=== PATIENT | male | born 1950 | race Caucasian/White ===

== ENCOUNTER → 2018-08-06 | Outpatient (CLI) | payer MEDICARE ==
[~2018-08-06] MED LIST: ALBU8.5H8 INH; DUTA0.5C; LISI-167; LISI-167 PO; METO25TA35 PO; TAMS-11; TEST100V2 INJ
[2018-08-06 13:53] LABS: ALANINE AMINOTRANSFERASE 41 U/L (12-78); ALBUMIN 3.9 g/dL (3.4-5.0); ANION GAP 7 mmol/L (5-15); CALCIUM 8.9 mg/dL (8.5-10.1); CHLORIDE 108 mmol/L (98-107)
[2018-08-06 13:56] LABS: ALKALINE PHOSPHATASE 70 U/L (45-117); BILIRUBIN,TOTAL 0.6 mg/dL (0.2-1.0); TOTAL PROTEIN 6.8 g/dL (6.4-8.2)
== END | disposition home or self-care (01) ==
LOC: STAR 12:34
PROVIDERS: ATTEND Otolaryngology
DX: Z01.818 Encounter for other preprocedural examination (principal); J32.0 Chronic maxillary sinusitis; J32.2 Chronic ethmoidal sinusitis; J33.8 Other polyp of sinus
CPT/HCPCS: 36415; 80053; 93005

== ENCOUNTER 2018-08-19 06:06 | Day surgery (SDC) | payer MEDICARE ==
[~2018-08-19] VITALS: Ht 182.9 cm; Wt 79.8 kg
[2018-08-19] MEDS ORDERED: LACTATED RINGERS 1,000 ML IV SCH (06:24)
[2018-08-19 06:28] VITALS: BP 141/86
[2018-08-19] MEDS ORDERED: BACITRACIN OINT 500U/GM, 15 GM ONE (06:43)
[2018-08-19] MEDS ORDERED: FLUORESCEIN SODIUM 500 MG/5 ML ONE (06:43)
[2018-08-19] MEDS ORDERED: EPINEPHRINE TOPICAL SOLN 1 MG/ML, 30ML ONE (06:43)
[2018-08-19] MEDS ORDERED: LIDOCAINE 1%-EPI 1:100K, 20ML ONE (06:44)
[2018-08-19] MEDS ORDERED: OXYMETAZOLINE NASAL SPRAY 0.05%, 15ML ONE (06:44)
[2018-08-19] MEDS ORDERED: hydrALAzine 20 MG/ML, 1ML IV PRN (07:00)
[2018-08-19] MEDS ORDERED: GABAPENTIN 300 MG CAPSULE PO ONE (07:00)
[2018-08-19] MEDS ORDERED: LABETALOL 5MG/ML, 20ML IV PRN (07:00)
[2018-08-19] MEDS ORDERED: ACETAMINOPHEN 325 MG TABLET PO PRN (07:00)
[2018-08-19] MEDS ORDERED: HYDROmorphone 2 MG/ML, 1ML IVPush PRN (07:00)
[2018-08-19] MEDS ORDERED: ONDANSETRON ODT 8 MG PO PRN (07:00)
[2018-08-19] MEDS ORDERED: METOCLOPRAMIDE 5 MG/ML, 2ML IV PRN (07:00)
[2018-08-19] MEDS ORDERED: EPHEDRINE 50 MG/ML, 1ML IM PRN (07:00)
[2018-08-19] MEDS ORDERED: TAMSULOSIN 0.4 MG CAP.ER.24H PO ONE (07:00)
[2018-08-19] MEDS ORDERED: OXYcodone IR 5MG TABLET PO ONE (07:00)
[2018-08-19] MEDS ORDERED: DEXAMETHASONE 4 MG/ML, 1ML IV PRN (07:00)
[2018-08-19] MEDS ORDERED: HYDROcodone/APAP 7.5-325MG/15ML UDC PO PRN (07:00)
[2018-08-19] MEDS ORDERED: DIPHENHYDRAMINE 50 MG/ML, 1ML IVPush PRN (07:00)
[2018-08-19] MEDS ORDERED: OXYcodone 5 MG/5 ML ORAL.SOL UDC PO PRN (07:00)
[2018-08-19] MEDS ORDERED: MEPERIDINE/PF 25MG/0.5ML IVPush PRN (07:00)
[2018-08-19] MEDS ORDERED: METOPROLOL 1 MG/ML, 5ML IV PRN (07:00)
[2018-08-19] MEDS ORDERED: EPHEDRINE 50 MG/ML, 1ML IVPush PRN (07:00)
[2018-08-19] MEDS ORDERED: ALBUTEROL/IPRATROPIUM 2.5MG/0.5MG, 3 ML NPPB PRN (07:00)
[2018-08-19] MEDS ORDERED: MIDAZOLAM 1 MG/ML, 2ML IV PRN (07:00)
[2018-08-19] MEDS ORDERED: FENTANYL PF 100 MCG/2ML IV PRN (07:00)
[2018-08-19] MEDS ORDERED: FAMOTIDINE 20 MG TABLET PO ONE (07:00)
[2018-08-19] MEDS ORDERED: LIDOCAINE 1%, 20ML ONE (07:01)
[2018-08-19] MEDS ORDERED: MAGNESIUM SULFATE 1 GM/2 ML ONE (07:02)
[2018-08-19] MEDS ORDERED: FENTANYL PF 250 MCG/5ML ONE (07:06)
[2018-08-19] MEDS ORDERED: DEXAMETHASONE 4 MG/ML, 1ML ONE (07:06)
[2018-08-19] MEDS ORDERED: MIDAZOLAM 1 MG/ML, 5ML ONE (07:06)
[2018-08-19] MEDS ORDERED: GLYCOPYRROLATE 0.2MG/1ML, 5ML ONE (07:06)
[2018-08-19] MEDS ORDERED: PROPOFOL 10 MG/ML, 20ML ONE (07:06)
[2018-08-19] MEDS ORDERED: ROCURONIUM 10MG/ML,5ML ONE (07:06)
[2018-08-19] MEDS ORDERED: CEFAZOLIN 1,000 MG ONE (07:39)
[2018-08-19] MEDS ORDERED: METOCLOPRAMIDE 5 MG/ML, 2ML ONE (07:59)
[2018-08-19] MEDS ORDERED: EPHEDRINE 50 MG/ML, 1ML ONE (08:12)
[2018-08-19] MEDS ORDERED: ONDANSETRON 2MG/ML, 2ML ONE (09:35)
== END 2018-08-19 13:08 | disposition home or self-care (01) ==
LOC: OUT 06:06
PROVIDERS: ATTEND Otolaryngology
DX: J32.9 Chronic sinusitis, unspecified (principal); J33.9 Nasal polyp, unspecified; I10 Essential (primary) hypertension; J45.909 Unspecified asthma, uncomplicated; Z87.891 Personal history of nicotine dependence
CPT/HCPCS: 31257; 31267; 88304; 88311; J0690; J1100; J2250; J2405; J2704; J2765; J3010; J3475; J3490; J7120